=== PATIENT | male | born 1990 | race Caucasian/White ===

== ENCOUNTER 2016-08-05 08:39 | Emergency (ER) | payer SELFPAY ==
[2016-08-05 08:46] VITALS: BP 115/68
--- NOTE | 2016-08-05 09:31 | ER Document Report ---
ED General - General Chief Complaint: Shoulder Pain Stated Complaint: SHOULDER PAIN Mode of Arrival: Ambulatory Information source: Patient Notes: 26-year-old male presents with complaints of abscess of left shoulder which he drained himself. Patient also notes that he is from [place] is on phenobarbital does not have a PCP and requests a refill of his medications. Patient denies any seizures TRAVEL OUTSIDE OF THE [place] IN LAST 30 DAYS: No - HPI Onset: Yesterday Onset/Duration: Persistent, Better Quality of pain: No pain Severity: Mild Pain Level: Denies Associated symptoms: Other Exacerbated by: Denies Relieved by: Denies Similar symptoms previously: Yes Recently seen / treated by doctor: Yes - Related Data Allergies/Adverse Reactions: No Known Allergies Allergy (Verified 08/05/16 08:49) Past Medical History - Social History Smoking Status: Never Smoker Cigarette use (# per day): No Chew tobacco use (# tins/day): No Smoking Education Provided: No Frequency of alcohol use: None Drug Abuse: None Family History: Reviewed & Not Pertinent Patient has suicidal ideation: No Patient has homicidal ideation: No Neurological Medical History: Reports: Hx Seizures Surgical Hx: Negative - Immunizations Immunizations up to date: No Hx Diphtheria, Pertussis, Tetanus Vaccination: Yes Review of Systems - Review of Systems Notes: REVIEW OF SYSTEMS: CONSTITUTIONAL : Denies fever, chills, or sweats. Denies recent illness. EENT: Denies eye, ear, throat, or mouth pain or symptoms. Denies nasal or sinus congestion or discharge. Denies throat, tongue, or mouth swelling or difficulty swallowing. CARDIOVASCULAR: Denies chest pain. Denies palpitations or racing or irregular heart beat. Denies ankle edema. RESPIRATORY: Denies cough, cold, or chest congestion. Denies shortness of breath, difficulty breathing, or wheezing. GASTROINTESTINAL: Denies abdominal pain or distention. Denies nausea, vomiting , or diarrhea. Denies blood in vomitus, stools, or per rectum. Denies black, tarry stools. Denies constipation. GENITOURINARY: Denies difficulty urinating, painful urination, burning, frequency, blood in urine, or discharge. MUSCULOSKELETAL: Denies back or neck pain or stiffness. Denies joint pain or swelling. SKIN: Admits to left shoulder abscess HEMATOLOGIC : Denies easy bruising or bleeding. LYMPHATIC: Denies swollen, enlarged glands. NEUROLOGICAL: Denies confusion or altered mental status. Denies passing out or loss of consciousness. Denies dizziness or lightheadedness. Denies headache. Denies weakness or paralysis or loss of use of either side. Denies problems with gait or speech. Denies sensory loss, numbness, or tingling. Denies seizures. PSYCHIATRIC: Denies anxiety or stress. Denies depression, suicidal ideation, or homicidal ideation. ALL OTHER SYSTEMS REVIEWED AND NEGATIVE. Dictation was performed using [employer] voice recognition software PHYSICAL EXAMINATION: GENERAL: Well-appearing, well-nourished and in no acute distress. HEAD: Atraumatic, normocephalic. EYES: Pupils equal round and reactive to light, extraocular movements intact, sclera anicteric, conjunctiva are normal. ENT: Nares patent, oropharynx clear without exudates. Moist mucous membranes. NECK: Normal range of motion, supple without lymphadenopathy LUNGS: Breath sounds clear to auscultation bilaterally and equal. No wheezes rales or rhonchi. HEART: Regular rate and rhythm without murmurs ABDOMEN: Soft, nontender, nondistended abdomen. No guarding, no rebound. No masses appreciated. Musculoskeletal: Normal range of motion, no pitting or edema. No cyanosis. NEUROLOGICAL: Cranial nerves grossly intact. Normal speech, normal gait. Normal sensory, motor exams PSYCH: Normal mood, normal affect. SKIN: Multiple healed previous abscesses on the back, puncture wounds of the left antecubital which patient states is due to donating plasma Physical Exam - Vital signs Vitals: Temp Pulse Resp BP Pulse Ox 97.7 F 98 16 115/68 99 08/05/16 08:45 08/05/16 08:45 08/05/16 08:45 08/05/16 08:45 08/05/16 08:45 Course - Re-evaluation Re-evalutation: 08/05/16 17:03 Patient's abscess on the left shoulder is well drained, there is no fluctuance no drainage noted. Patient will be placed on antiobitcis otherwise stable. Patient will be placed back on his phenobarbital and given neurology follow-up After performing a Medical Screening Examination, I estimate there is LOW risk for OPEN FRACTURE, COMPARTMENT SYNDROME, TENDON RUPTURE, ACUTE NEUROVASCULAR INJURY, or RETAINED FOREIGN BODY, thus I consider the discharge disposition reasonable. Also, there is no evidence or peritonitis, sepsis, or toxicity. The patient and I have discussed the diagnosis and risks, and we agree with discharging home with close follow-up with the understanding that symptoms and presentations can change. We also discussed returning to the Emergency Department immediately if new or worsening symptoms occur. We have discussed the symptoms which are most concerning (e.g., changing or worsening pain, fever , numbness, weakness, cool or painful digits) that necessitate immediate return. - Vital Signs Vital signs: Temp Pulse Resp BP Pulse Ox 97.7 F 98 16 115/68 99 08/05/16 08:45 08/05/16 08:45 08/05/16 08:45 08/05/16 08:45 08/05/16 08:45 Discharge - Discharge Clinical Impression: Seizure disorder, Medication refill, Abscess Condition: Stable Disposition: HOME, SELF-CARE Instructions: Abscess ([facility]) Prescriptions: Phenobarbital [Phenobarbital 97.2 mg Tablet] 97.2 mg PO QHS #30 tablet Cephalexin Monohydrate [Keflex 500 mg Capsule] 500 mg PO QID #40 capsule Sulfamethoxazole/Trimethoprim [Bactrim Ds Tablet] 2 each PO BID #40 tablet Referrals: SHABBIR RIOS MD [ACTIVE STAFF] - Follow up in 3-5 days
== END 2016-08-05 09:34 | disposition home or self-care (01) ==
LOC: ER 08:39
DX: G40.909 Epilepsy, unspecified, not intractable, without status epilepticus (principal); L02.414 Cutaneous abscess of left upper limb; M25.512 Pain in left shoulder
CPT/HCPCS: 99283

== ENCOUNTER 2020-08-09 00:53 | Emergency (ER) | payer SELFPAY ==
[2020-08-09 01:13] VITALS: BP 126/70
== END 2020-08-09 01:26 | disposition left against medical advice (07) ==
LOC: ER 00:53
DX: Z53.21 Procedure and treatment not carried out due to patient leaving prior to being seen by health care provider (principal); L02.214 Cutaneous abscess of groin